=== PATIENT | female | born 1965 ===

== ENCOUNTER 2022-04-21 10:51 | Inpatient (IN) | payer OTHER ==
[~2022-04-21] VITALS: Ht 160 cm; Wt 72.6 kg
[2022-04-28] MEDS ORDERED: ALEVE220 MG PO (15:09)
[2022-04-29] MEDS ORDERED: DUI500 PO (13:01)
[2022-04-29] MEDS ORDERED: XARELTO10 MG PO (13:01)
[2022-04-29] MEDS ORDERED: PERCOCET 5-3251 EACH PO (13:01)
== END 2022-04-29 16:41 | DRG 470 ==
LOC: O/R 04-27 05:25 → SURH 04-27 12:15 → SURG 04-27 19:58
PROVIDERS: ADMIT Orthopaedic Surgery; ATTEND Orthopaedic Surgery
PROC: 0SRC0J9 Replacement of Right Knee Joint with Synthetic Substitute, Cemented, Open Approach (ICD-10-PCS; principal; 2022-04-27 13:30)
DX: M17.11 Unilateral primary osteoarthritis, right knee (principal); D62 Acute posthemorrhagic anemia; M22.11 Recurrent subluxation of patella, right knee; Z20.822 Contact with and (suspected) exposure to COVID-19; E11.9 Type 2 diabetes mellitus without complications; Z79.4 Long term (current) use of insulin